=== PATIENT | male | born 1960 | race Caucasian/White ===

== ENCOUNTER 2020-07-24 11:12 | Emergency (ER) | payer MEDICAID ==
[~2020-07-24] VITALS: Ht 180.3 cm; Wt 81.6 kg
--- NOTE | 2020-07-24 11:12 | NUR ---
PATIENT NATE ALS TO ER BED 03
[2020-07-24 11:14] VITALS: BP 137/91
--- NOTE | 2020-07-24 11:15 | NUR ---
BIBA FROM [facility] C/O CONFUSION X LAST NIGHT. PER EMS, PT CANT RECALL LAST NIGHTS EVENTS ALERT NOW , PT AOX 4, AFIBRILE , AMBULATORY WITH STEADY GAIT, PINK PALPEBRAL CONJUNCTIVA ,ANICTERIC SCLERA , SCE ,FLAT SOFT ABDOMEN. PMH- HIV
--- NOTE | 2020-07-24 11:20 | NUR ---
dr [facility]
--- NOTE | 2020-07-24 11:38 | NUR ---
EMT ADAKU AT BEDSIDE DOIN EKG
[2020-07-24 11:43] VITALS: BP 137/91
--- NOTE | 2020-07-24 11:44 | NUR ---
Patient discharged with v/s stable. Written and verbal after care instructions given and explained. Patient verbalized understanding. Ambulatory with steady gait. All questions addressed prior to discharge. Advised to follow up with PMD.
== END 2020-07-24 11:44 | disposition home or self-care (01) ==
LOC: MED 11:12
DX: R55 Syncope and collapse (principal); R41.0 Disorientation, unspecified; F17.210 Nicotine dependence, cigarettes, uncomplicated
CPT/HCPCS: 93005; 99283